=== PATIENT | female | born 1935 | race Caucasian/White ===

== ENCOUNTER → 2019-06-28 18:57 | Outpatient (CLI) | payer MEDICARE, SELFPAY ==
--- NOTE | 2019-06-28 19:08 | DI.MRI.S_ITS ---
PROCEDURE: MR THORACIC SPINE WO CON INDICATIONS: PAIN IN THORACIC SPINE TECHNIQUE: Noncontrast sagittal T1 spine echo and T2 fast spin echo, sagittal STIR, axial T1 and T2 fast spin echo through the thoracic spine. COMPARISON: None. FINDINGS: Image quality: Excellent. Alignment and Curvature: There is normal bony alignment. Bone Marrow: Marrow is of normal overall signal. Increased T1 and T2 signal is present at T9 suggestive of hemangioma. 67% compression deformity is identified at T5. There is no retropulsion. This demonstrates hypointense T1, hyperintense STIR and relatively hypointense T2 signal. In addition, there is a linear focus of hypointense T1 and hyperintense T2 signal along the superior endplate of T6 without compression. Spinal Cord: Visualized spinal cord is normal in size and signal. Paraspinous Soft Tissues: No paravertebral masses. Miscellaneous: On axial images, central canal and foramina appear widely patent at all scanned levels. There are scattered levels of increased T2 hyperintensity within the exiting nerve roots most notable at T3, T5, T6, T7, T8-1, T11. Trace disc bulges present at T9-10, T10-11. Multilevel moderate disc desiccation is present. IMPRESSION: 1. Subacute compression fracture at T5, as well as noncompressed endplate fracture at T6. Recommend consultation with interventional radiology for potential vertebral augmentation. Dictated by: Suellen Coker M.D. on 06/29/2019 at 11:09 Approved by: Suellen Coker M.D. on 06/29/2019 at 11:19
== END ==
PROVIDERS: PCP Chiropractor; Visit Provider Physician Assistant Medical
DX: M54.6 Pain in thoracic spine (principal); M48.54XA Collapsed vertebra, not elsewhere classified, thoracic region, initial encounter for fracture
CPT/HCPCS: 72146

== ENCOUNTER 2019-07-20 14:47 | Day surgery (SDC) | payer MEDICARE, SELFPAY ==
[2019-07-18 15:24] VITALS: BMI 30.4
[2019-07-20] VITALS (13 sets, daily range): BP systolic 118–174; BP diastolic 63–100; PULSE 65–98; RESP 9–19; TEMP 35.9–36.4; O2SAT 91–100; BMI 30.4
--- NOTE | 2019-07-20 | DI.RAD.S_ITS ---
PROCEDURE: XR LUMBAR SPINE MIN 4V INDICATIONS: KYPHO TECHNIQUE: 4 intraoperative fluoroscopic views of the lumbar spine acquired. COMPARISON: [facility], MR, MR THORACIC SPINE WO CON, 06/28/2019, 19:15. FINDINGS: Intraoperative fluoroscopic images of the lumbar spine shows anterior wedge compression deformity of a thoracic spine vertebral body with kyphoplasty performed at this level. Exact level cannot be determined based on the images given. IMPRESSION: Fluoroscopy guidance was provided for kyphoplasty of a thoracic spine vertebral body. Dictated by: Ron Polanco M.D. on 07/20/2019 at 19:54 Approved by: Ron Polanco M.D. on 07/20/2019 at 19:55
--- NOTE | 2019-07-20 | PATH_ITS ---
[facility] Accession Number: [id number] . 01 Material submitted: . bone - BONE T5 . 02 Diagnosis: Bone, T5 Vertebra, Biopsy: Predominantly blood with rare marrow elements. No evidence of neoplasm. MRV 07/22/2019 1524 Local . 02 Electronically signed: . Omero Oscar MD, PhD, Pathologist NPI- [id number] . 01 Gross description: . Received in formalin, labeled bone, T5, is red-brown solid soft material (1.0 x 0.5 x 0.1 cm in aggregate). Filtered, decalcified, and entirely submitted in cassette A1. (JM:[id number]) /MRV 07/21/2019 1517 Local . 02 Pathologist provided ICD-10: S22.050A . 02 CPT . 715492 Performed at: 01 [facility] [address], [place], [place] [id number] MD Jorge Amato MD Phone: [phone] Performed at: [address] [facility] [address] [place], [place] [id number] MD Liliana Gunter MD Phone: [phone]
--- NOTE | 2019-07-20 16:23 | PM.PREOP ---
Pre-operative Note Interval Note History & Physical reviewed/Exam performed by Physician: Yes Changes to H&P: No
--- NOTE | 2019-07-20 16:24 | PM.OP.1 ---
Operative Date/Time/Diagnoses Date of procedure: 07/20/19 Pre-op diagnosis: T5 compression fracture Back pain Post-op diagnosis: same Procedure & Clinicians Procedure: T5 kyphoplasty Same procedure as scheduled: Yes Indications: [age] year old female with intractable pain from an acute T5 compression fracture. They had failed conservative management and requested operative intervention. Risks and benefits of surgery were discussed and appropriate consents were obtained. Surgeon: Hany Desai Click Yes if Unassisted: Yes Anesthesia Type: General Operative Notes Findings: None Closure Type: primary Specimen(s): other (T5 vertebral biopsy) Estimated Blood Loss (mL): 2 Blood products transfused: none Procedure in detail: The patient was brought to the operating room and intubated on the table. They were then rolled over to the well-padded prone position. Time-out was performed. We confirmed positioning with two fluoroscopy views. The back was prepped and draped in the standard sterile fashion. Preoperative antibiotics were given. Using fluoroscopic guidance, the planned incision site was infiltrated with Marcaine with epinephrine and injected down to the entry site of the left pedicle of T5. A small stab incision was made and we advanced a Jamshiedi needle down the left pedicle into the vertebral body. A bone biopsy was harvested from this and sent to pathology. We then passed the DFine osteotome and opened it up to create a void inside the vertebral body. We then began injecting the cement. This was done with frequent fluoroscopy imaging. There was no extravasation. Once we had good fill of the T5 vertebral body the injection was stopped and the trocars were removed. Final x-rays were taken. The wound was cleaned. Steri-Strips and sterile dressing were placed. Patient was rolled over, extubated, and brought to recovery without complications. Complications: none Post-operative Condition: stable Disposition: PACU Plan for aftercare: Outpatient. Activity as tolerated.
[2019-07-20] MEDS: CLINDAMYCIN 600 MG/50 ML PIGGYBACK 50 MG IV (16:45)
--- NOTE | 2019-07-20 17:13 | SUR.OPER ---
Prone on spine table with flat padded mattress, gel chest rolls in place, head in foam head support, gel pad at knees, lower legs supported by pillows; nipples, genitalia and toes free of pressure, at sides secured with draw sheet and clips. Tape over blanket at thigh secured to table.
[2019-07-20] MEDS: BUPIVACAINE 0.25% W/ EPI 30 ML VIAL 60 ML INJ (17:17)
--- NOTE | 2019-07-20 19:08 | SUR.PHASEII ---
Have tried to titrate patient off of O2, converted to BRAIDER SETTER up to 5L, sat 83-96%, better after ambulating to the bathroom; voided. VSS. Consulted with anesthesia, stated that she needs to spend the night and to contact Dr. Desai. Daughter at bedside, pt has been on continuous pulse ox in OPD. Pudding, crackers, and water given, tolerated well.
--- NOTE | 2019-07-20 19:15 | SUR.PHASEII ---
1 liter LR infused
--- NOTE | 2019-07-20 19:17 | SUR.PHASEII ---
report called to the floor.
--- NOTE | 2019-07-20 19:38 | SUR.PHASEII ---
1920 to room 216, pt stood to transfer to bed, stable on feet. Daughter went home from OPD; gave pt her purse, glasses, and cell phone prior to departure. Acute care will log in; clothing bag placed in closet. RT called for O2 monitoring and CPAP. AC RN putting on SCD.s One tiny spot of red drainage on the lower edge of the back dressing. No questions from RN or Pt. Pt appreciative and pleasant. Pain 4/10 prior to transfer.
--- NOTE | 2019-07-20 19:58 | PC.ADMIT ---
[address] Admission Note: The patient,Edwin Scott,83 y/o, was given written information regarding hospital policies, unit procedures and contact persons. Patient's smoking status: Former smoker. Pt arrived from PACU at approx 1930. A/O. VSS. Connected to 5L NC. Unable to get reading on o2 finger monitor as pt has artificial nails. R.T. notified to bring ear probe. Denies pain. Oriented to room and call system. Dr. Desai called to give verbal orders for the night. Vital Signs - 8 hr 07/20/19 15:47 07/20/19 17:38 07/20/19 17:44 Temperature 97.4 F L 97.0 F L Pulse Rate 94 H 98 H 81 Respiratory Rate 16 12 12 Blood Pressure 118/75 156/100 H 173/96 H Pulse Oximetry 94 94 07/20/19 17:52 07/20/19 17:59 07/20/19 18:03 Temperature Pulse Rate 86 79 90 Respiratory Rate 9 L 9 L 9 L Blood Pressure 161/83 H 168/91 H 157/98 H Pulse Oximetry 95 95 95 07/20/19 18:09 Temperature 97.5 F L Pulse Rate 80 Respiratory Rate 11 L Blood Pressure 174/97 H Pulse Oximetry 91
[2019-07-20] MEDS: OXYBUTYNIN 5 MG TABLET 10 MG PO (21:08)
[2019-07-20] MEDS: DONEPEZIL 5 MG TABLET 10 MG PO (21:09)
[2019-07-20] MEDS: TRAVOPROST OPHTH DROPS 1 DROPS EYE-BOTH (21:09)
[2019-07-20] MEDS: ROSUVASTATIN 10 MG TABLET 5 MG PO (21:15)
[2019-07-20] MEDS: METOPROLOL IR 50 MG TABLET 100 MG PO (21:15)
[2019-07-21] MEDS: OXYCODONE IR 5 MG TABLET PO ×2 (00:32→09:11)
[2019-07-21 00:35] VITALS: BP 118/64; PULSE 85; RESP 19; TEMP 36.3; O2SAT 92
[2019-07-21 03:30] VITALS: BP 154/72; PULSE 63; RESP 16; TEMP 36.4; O2SAT 94
[2019-07-21] MEDS: LEVOTHYROXINE 75 MCG TABLET PO (05:53)
--- NOTE | 2019-07-21 06:15 | PC.NURSE ---
Addendum entered by Radha Simpson R.N. 07/21/19 06:20: Pt placed on room air this morning and saturating fine until she fell asleep and was then at 80%. Placed back on 2L NC and now satting in the low 90s. Hx GUILLAUME Original Note: Pt is doing well. Oxycodone 5mg given for pain with good relief. Pt was 92% on Room air; CPAP HS, no issues. 1p assist ambulating well.
[2019-07-21 07:20] VITALS: BP 137/80; PULSE 80; TEMP 36.5
--- NOTE | 2019-07-21 07:32 | PM.PNPO.1 ---
Subjective Subjective Date Patient Seen: 07/21/19 Time Patient Seen: 07:32 Interval history: She was admitted overnight as she could not maintain oxygen saturation on room air last night. She gradually was weaned over night although kept on 2 L while she was asleep as she was still lowering her oxygen saturation. Once I woke her up this morning she was up to 98% after few moments. Exam Vital Signs (past 8 hours): - 07/21/19 00:35 07/21/19 03:30 Temperature 97.4 F L 97.6 F Pulse Rate 85 63 Respiratory Rate 19 16 Blood Pressure 118/64 154/72 H Pulse Oximetry 92 94 Oxygen Delivery Method Nasal Cannula,CPAP Oxygen Flow Rate 6 Const Orientation: alert and oriented x3 Back/Spine/Pelvis Other: Minimal drainage. 5/5 motor both lower extremities Assessment & Plan Post-op Postoperative Procedures: Procedures Operation Date: 07/20/19 16:15 <No data on this case meets the specified criteria> Operation Date: 07/20/19 16:15 Actual Procedures Side Surgeon p T5 Kyphoplasty Hany Desai MD She is doing much better. Normal oxygen saturation while awake. Plan to discharge home today. Quality VTE Deep Vein Thrombosis/Pulmonary Embolism Present on Admission: No
[2019-07-21 08:00] VITALS: BP 137/80; PULSE 79; RESP 16; TEMP 36.5; O2SAT 100
[2019-07-21] MEDS: VENLAFAXINE ER 75 MG CAP 150 MG PO (09:11)
[2019-07-21] MEDS: METOPROLOL IR 50 MG TABLET 200 MG PO (09:11)
[2019-07-21 10:24] VITALS: O2SAT 92
--- NOTE | 2019-07-21 11:44 | PC.NURSE ---
Day shift: Pt left unit w/ daughter to private car at approx 1145. Taken to car by PAULINE Saldivar. Paperwork signed and all questions answered. Pt has MD scrips that were filled yesterday. Pt has all personal belongings. Dressing CDI. CMS intact.
--- NOTE | 2019-07-21 11:45 | PC.NURSE ---
Addendum entered by Ashley Mcbride LPN 07/21/19 13:27: Original Note: Pt given one percolone for discomfort and helpful. Dressing to lower neck is cdi. Pt up independently at this time. Pleasant and cooperative with care.. IV taken out and pt is going to discharge home very soon.
--- NOTE | 2019-07-21 13:29 | CM.DANOTE ---
Discharge Planning/Care Management DCP: assessment: case received and discussed in Team Rounds this morning. Pt is an 83 year old female who admitted yesterday for a scheduled kyphoplasty/T5-6 compression fracture. Surgeon: Dr. Desai Payer: Medicare Admission status: SDC/outpt with bed: confirmed by UR NISSA Garvey. PT noted in Rounds that therapy had not been ordered. Went early this afternoon to check in with pt. She had already left for home per Nissa Andrew, in company of her daughter. She was up and independent in her room. No concerns re the d/c today were expressed by the care team members. Advanced directive, confirm from FAMILY Start: 07/20/19 21:00 Freq: Q24H Status: Discharge Protocol: Document 07/20/19 19:51 GMP (Rec: 07/20/19 22:24 GMP [id number]) Advance Directive, confirm on record Time 19:51 Person contacted pt Copy received No Document 07/20/19 21:00 GMP (Rec: 07/20/19 22:25 GMP [id number]) Advance Directive, confirm on record Time 19:51 Person contacted pt Copy received No CM Discharge Assessment Start: 07/21/19 13:28 Freq: Status: Active Protocol: Document 07/21/19 13:29 ITV (Rec: 07/21/19 13:29 ITV [id number]) Discharge Planning Assessment Advance Directives? Yes History Provided By Medical Record Prior Living Arrangements House Household Members family Independent with ADL's Yes Is patient alert and oriented? Yes Review Status In Process Pre-Anesthesia Assessment Start: 07/18/19 15:24 Freq: Status: Discharge Protocol: Document 07/18/19 15:24 CAB (Rec: 07/18/19 15:31 CAB [id number]) Pre-Anesthesia Assessment Patient Information Reviewed Via Chart Review Seen Specialist in Last 12 Months Yes Specialist Seen Orthopedist Primary Language Croatian Insurance Follow Up Rep Required No Height 171.45 cm Weight 89.358 kg Body Mass Index (BMI) 30.4 Hx Anesthesia Reactions No: No previous surgical history identified Anesthesia Review Requested No Ccu Nurse No alcohol intake current Alcohol Intake Frequency Other: Occasional Smoking Status Former smoker Tobacco type cigarettes Pain Present Pain Reported Musculoskeletal Symptoms Abnormal Gait,Back Pain, Difficulty Walking History of Falling (Recent or History of Yes ) Patient is completely paralyzed or No completely immobile Mental Status Oriented to own ability Hx Sleep Apnea Yes: CPAP compliance unknown Comment Hx COPD, Asthma Currently Taking a Beta Anni Yes: Metoprolol Anti-Coagulant Therapy Yes: Xarelto-Unknown when pt has been instructed to hold Hx Pacemaker/ICD No Pacemaker Rep Required? No Urinary Catheter Present No Hx Urinary Self Catheterization No Diabetes Yes Patient No Lactating No Marital Status Single Patient Discharge Plan Description Return Home
== END 2019-07-21 11:47 | disposition home or self-care (01) ==
LOC: OR 17:31 → AC 19:15
PROVIDERS: PCP Chiropractor; Visit Provider Orthopaedic Surgery
PROC: (CPT 22513; principal; 2019-07-20 16:15)
DX: S22.050A Wedge compression fracture of T5-T6 vertebra, initial encounter for closed fracture (principal); M54.9 Dorsalgia, unspecified; M54.41 Lumbago with sciatica, right side; M19.90 Unspecified osteoarthritis, unspecified site; M41.9 Scoliosis, unspecified; G47.30 Sleep apnea, unspecified; M79.7 Fibromyalgia; E11.9 Type 2 diabetes mellitus without complications; J44.9 Chronic obstructive pulmonary disease, unspecified; I48.91 Unspecified atrial fibrillation
CPT/HCPCS: 22513; 72110; 76000; 82962; 94762; C1776; J0330; J2405; J3010

== ENCOUNTER 2019-08-01 13:59 | Day surgery (SDC) | payer MEDICARE, SELFPAY ==
[2019-07-20 20:51] VITALS: BMI 30.4
[2019-07-27 14:59] VITALS: BMI 30.4
[2019-08-01] VITALS (9 sets, daily range): BP systolic 137–174; BP diastolic 69–94; PULSE 68–85; RESP 12–19; TEMP 36–36.8; O2SAT 95–100; BMI 30.4
--- NOTE | 2019-08-01 | PATH_ITS ---
[facility] Accession Number: [id number] . 01 Material submitted: . PART A: bone - T7 VERTEBRAL BONE BIOPSY PART B: bone - T11 VERTEBRAL BONE BIOPSY . 02 Diagnosis: A. T7 Vertebral Bone, Biopsy: Fragments of bone with changes suggestive of reactive/repair. Bone marrow with trilineage hematopoiesis. No evidence of neoplasia. . B. T11 Vertebral Bone, Biopsy: Multiple fragments of bone marrow with trilineage hematopoiesis. No evidence of neoplasia. [facility] 08/03/2019 1634 Local . 02 Electronically signed: . Liliana Gunter MD, Pathologist NPI- [id number] . 01 Gross description: . Received two formalin-filled containers both labeled with the patient's name. . A. In a container labeled T7 vertebral bone, the specimen consists of a 0.2 x 0.2 x 0.2 cm portion of possible bone and blood. Filtered and entirely submitted in cassette A. will be placed in decal for softening. B. In a container labeled T11 vertebral bone, the specimen consists of an extremely tiny less than 0.1 cm portion of possible bone and blood. The specimen is filtered, wrapped and entirely submitted in cassette B. Will be placed in decal for softening. ([facility]:[id number]) /[facility] 08/02/2019 1828 Local . 02 Pathologist provided ICD-10: S22.050A . 02 CPT . 816088, 134032 Performed at: 01 [facility] [address] [facility], [place], [place] [id number] MD Jorge Amato MD Phone: [phone] Performed at: 02 [facility] [address] [place], [place] [id number] MD Liliana Gunter MD Phone: [phone]
[2019-08-01] MEDS: LACTATED RINGERS 1,000 ML 42 ML IV (15:00)
[2019-08-01] MEDS: fentaNYL 100 MCG/2 ML INJ 50 MCG IV ×2 (15:21→15:29)
--- NOTE | 2019-08-01 15:55 | PM.PREOP ---
Pre-operative Note Interval Note History & Physical reviewed/Exam performed by Physician: Yes Changes to H&P: Yes H&P completed within 30 days and has changed as indicated here:: Has been having more pain between the two spots. We will check for a new fracture with fluoro and treat as indicated
--- NOTE | 2019-08-01 15:56 | PM.OP.1 ---
Operative Date/Time/Diagnoses Date of procedure: 08/01/19 Time of procedure: 17:13 Pre-op diagnosis: T7 and T11 compression fractures Back pain Post-op diagnosis: same Procedure & Clinicians Procedure: T7, T11 kyphoplasties Same procedure as scheduled: Yes Indications: [age] year old female with intractable pain from acute compression fractures. They had failed conservative management and requested operative intervention. Risks and benefits of surgery were discussed and appropriate consents were obtained. Click Yes if Unassisted: Yes Anesthesia Type: General Operative Notes Findings: None Closure Type: primary Specimen(s): other (T7 and T11 vertebral biopsies) Estimated Blood Loss (mL): 2 Blood products transfused: none Procedure in detail: The patient was brought to the operating room and intubated on the table. They were then rolled over to the well-padded prone position. Time-out was performed. We confirmed positioning with two fluoroscopy views. The back was prepped and draped in the standard sterile fashion. Preoperative antibiotics were given. We used fluoroscopy and scanned her back from T4 through T12 but did not see any other fractures. Using fluoroscopic guidance, the planned incision sites were infiltrated with Marcaine with epinephrine and injected down to the entry site of the left pedicles of T7 and T11. A small stab incision was made and we advanced a Jamshiedi needle down the left pedicle into the vertebral bodies. A bone biopsy was harvested from each and sent to pathology. We then passed the DFine osteotome and opened it up to create a void inside the vertebral bodies of T7 and T11. We then began injecting the cement at T7. This was done with frequent fluoroscopy imaging. There was some lateral extravasation, we stopped and moved down to T11. We began injecting cement and T11 and had good fill of vertebral body with no extravasation. The trocar was removed at this level and we went back up to T7. We began injecting again and had good fill of the vertebral body but no further extravasation. Once we'd good fill in the body of T7, we stopped injecting and the trocar was removed. Final X-rays were taken. The wound was cleaned. Steri-Strips and sterile dressing were placed. Patient was rolled over, extubated, and brought to recovery without complications. Complications: none Post-operative Condition: stable Disposition: PACU Plan for aftercare: Outpatient. Planned on overnight observation if her oxygen saturation is low like last time as she is nighttime oxygen dependent.
[2019-08-01] MEDS: CLINDAMYCIN 900 MG/50 ML PIGGYBACK 50 MG IV (16:20)
--- NOTE | 2019-08-01 16:43 | SUR.OPER ---
Prone on padded OR bed, head in foam head support, gel chest rolls, gel pad under knees, pillow under lower legs, toes free of pressure, arms padded with gel pads and secured at sides. Safety belt at thigh.
[2019-08-01] MEDS: BUPIVACAINE 0.25% W/ EPI (PF) 10 ML VIAL 20 ML INJ (16:58)
--- NOTE | 2019-08-01 17:34 | DI.RAD.S_ITS ---
PROCEDURE: XR THORACIC SPINE 3V INDICATIONS: T7 AND T11 KYPHOPLASTY TECHNIQUE: 8 views of the thoracic spine were acquired. COMPARISON: [facility], MR, MR THORACIC SPINE WO CON, 06/28/2019, 19:15. [facility], CR, XR THORACIC SPINE 2 VIEWS, 07/25/2019, 13:51. FINDINGS: 8 intraoperative fluoroscopy images demonstrate kyphoplasties in thoracic spine. The levels were labeled images as T7 and T11. IMPRESSION: Kyphoplasties. Dictated by: Gabriela Macdonald M.D. on 08/01/2019 at 18:09 Approved by: Gabriela Macdonald M.D. on 08/01/2019 at 18:15
== END 2019-08-01 18:32 | disposition home or self-care (01) ==
PROVIDERS: PCP Chiropractor; Visit Provider Orthopaedic Surgery
PROC: (CPT 22513; principal; 2019-08-01 16:15)
DX: S22.060A Wedge compression fracture of T7-T8 vertebra, initial encounter for closed fracture (principal); M54.9 Dorsalgia, unspecified; M41.9 Scoliosis, unspecified; G47.30 Sleep apnea, unspecified; M79.7 Fibromyalgia; E11.9 Type 2 diabetes mellitus without complications; J44.9 Chronic obstructive pulmonary disease, unspecified; I48.91 Unspecified atrial fibrillation; Z86.718 Personal history of other venous thrombosis and embolism; Z79.01 Long term (current) use of anticoagulants
CPT/HCPCS: 22513; 22515; 72074; 76000; C1776; J0330; J1100; J2405; J2704; J3010